=== PATIENT | female | born 1975 | race Caucasian/White ===

== ENCOUNTER 2024-04-08 13:07 | Emergency (ER) | payer OTHER ==
[2024-04-08 13:18] VITALS: BP 118/82; PULSE 72; RESP 18; TEMP 99.2; BMI 33.2
[2024-04-08 14:30] LABS: BASO % 0.9 % (0-2.0); EOS % 0.6 % (0-4.5); HEMATOCRIT 38.6 % (32.4-45.2); HEMOGLOBIN 12.8 GM/dL (10.7-15.3); LYMPH % 28.3 % (8-40); MCH 28.8 pg (25.7-33.7); MEAN CELL VOLUME 87.2 fl (80-96); MEAN PLT VOLUME 7.7 fl (7.5-11.1); MONO % 6.9 % (3.8-10.2); NEUT % 63.3 % (42.8-82.8); PLATELET COUNT 285 10^3/uL (134-434); RBC 4.43 M/mm3 (3.60-5.2); RDW 13.3 % (11.6-15.6)
[2024-04-08 14:31] LABS: URINE APPEARANCE CLEAR; URINE BILIRUBIN NEGATIVE (NEGATIVE); URINE COLOR YELLOW; URINE GLUCOSE (UA) NEGATIVE (NEGATIVE); URINE KETONE NEGATIVE (NEGATIVE); URINE LEUK ESTERASE NEGATIVE (NEGATIVE); URINE NITRITE NEGATIVE (NEGATIVE); URINE PROTEIN NEGATIVE (NEGATIVE); URINE UROBILINOGEN 0.2 mg/dL (0.2-1.0)
[2024-04-08 14:34] LABS: HCG,QUALITATIVE URINE Negative
[2024-04-08] MEDS ORDERED: KETOROLAC TROMETHAMINE 30 MG/1 ML VIAL ONE ×2 (14:55→15:54)
[2024-04-08] MEDS: SODIUM CHLORIDE 0.9% 500 ML INFUS.BAG IV ONE (14:58)
[2024-04-08] MEDS: KETOROLAC TROMETHAMINE 30 MG/1 ML VIAL IVPUSH ONE (14:59)
[2024-04-08 15:03] LABS: POTASSIUM 4.1 mmol/L (3.5-5.1)
[2024-04-08 15:05] LABS: CALCIUM 9.4 mg/dL (8.5-10.1)
[2024-04-08 15:06] LABS: ALBUMIN 3.8 g/dl (3.4-5.0); BLOOD UREA NITROGEN 20.2 mg/dL (7-18)
[2024-04-08 15:09] LABS: CREATININE 0.6 mg/dL (0.55-1.3)
[2024-04-08 15:11] LABS: BILIRUBIN,TOTAL 0.4 mg/dL (0.2-1); TOT PROT 7.8 g/dl (6.4-8.2)
== END 2024-04-08 22:19 | disposition home or self-care (01) ==
LOC: JER 13:07
PROC: 3E0333Z Introduction of Anti-inflammatory into Peripheral Vein, Percutaneous Approach (ICD-10-PCS; principal; 2024-04-08)
DX: R10.32 Left lower quadrant pain (principal); R53.83 Other fatigue; N83.202 Unspecified ovarian cyst, left side
CPT/HCPCS: 36415; 74177-TC; 76830-TC; 80053; 81003; 84703; 85025; 87086; 99285-25

== ENCOUNTER 2024-07-17 14:50 | Emergency (ER) | payer OTHER ==
[2024-07-17 15:05] VITALS: RESP 18; TEMP 98.8; BMI 28.9
[2024-07-17 15:56] LABS: BASO % 1.2 % (0-2.0); EOS % 1.1 % (0-4.5); HEMATOCRIT 38.6 % (32.4-45.2); HEMOGLOBIN 12.7 GM/dL (10.7-15.3); MCH 28.1 pg (25.7-33.7); MCHC 32.9 g/dl (32.0-36.0); MEAN CELL VOLUME 85.4 fl (80-96); MEAN PLT VOLUME 8.2 fl (7.5-11.1); MONO % 8.3 % (3.8-10.2); NEUT % 54.4 % (42.8-82.8); PLATELET COUNT 261 10^3/uL (134-434); RBC 4.51 M/mm3 (3.60-5.2); RDW 13.8 % (11.6-15.6); WHITE BLOOD COUNT 10.9 K/mm3 (4.0-10.0)
[2024-07-17] MEDS ORDERED: MAG HYDROX/AL HYDROX/SIMETH 30 ML UNIT-DOSE CUP ONE (16:06)
[2024-07-17] MEDS ORDERED: FAMOTIDINE 10 MG TABLET ONE (16:06)
[2024-07-17] MEDS ORDERED: ACETAMINOPHEN 500 MG TABLET (FP) ONE (16:09)
[2024-07-17] MEDS: FAMOTIDINE 10 MG TABLET PO ONE (16:13)
[2024-07-17] MEDS: MAG HYDROX/AL HYDROX/SIMETH 30 ML UNIT-DOSE CUP PO ONE (16:13)
[2024-07-17] MEDS: ACETAMINOPHEN 500 MG TABLET (FP) PO ONE (16:13)
[2024-07-17 16:28] LABS: CHLORIDE 103 mmol/L (98-107); SODIUM 135 mmol/L (136-145)
[2024-07-17 16:29] LABS: ALBUMIN 3.8 g/dl (3.4-5.0); CALCIUM 9.1 mg/dL (8.5-10.1)
[2024-07-17 16:30] LABS: CO2 28 mmol/L (21-32); GLUCOSE,RANDOM 83 mg/dL (74-106); MAGNESIUM 2.2 mg/dL (1.8-2.4)
[2024-07-17 16:31] LABS: ANION GAP 4 mmol/L (4-13); POTASSIUM 6.5 mmol/L (3.5-5.1)
[2024-07-17 16:33] LABS: SGOT/AST 85 U/L (15-37)
[2024-07-17 16:34] LABS: BILIRUBIN,TOTAL 0.3 mg/dL (0.2-1); SGPT/ALT 49 U/L (13-61); TOT PROT 8.1 g/dl (6.4-8.2)
[2024-07-17 16:36] LABS: ALK PHOS 70 U/L (45-117)
[2024-07-17 17:26] LABS: PH,URINE 5.5 (5.0-8.0); URINE APPEARANCE CLOUDY; URINE BILIRUBIN NEGATIVE (NEGATIVE); URINE COLOR YELLOW; URINE GLUCOSE (UA) NEGATIVE (NEGATIVE); URINE KETONE NEGATIVE (NEGATIVE); URINE LEUK ESTERASE NEGATIVE (NEGATIVE); URINE NITRITE NEGATIVE (NEGATIVE); URINE PROTEIN NEGATIVE (NEGATIVE); URINE UROBILINOGEN 0.2 mg/dL (0.2-1.0)
[2024-07-17 17:36] VITALS: BP 140/79; PULSE 68
[2024-07-17 17:43] LABS: POTASSIUM 4.2 mmol/L (3.5-5.1)
[2024-07-17 17:45] LABS: BLOOD UREA NITROGEN 15.4 mg/dL (7-18); CALCIUM 8.8 mg/dL (8.5-10.1)
[2024-07-17 17:49] LABS: CREATININE 0.8 mg/dL (0.55-1.3)
== END 2024-07-17 19:05 | disposition home or self-care (01) ==
LOC: JER 14:50
DX: R07.89 Other chest pain (principal)
CPT/HCPCS: 36415; 71045-TC-FY; 80048; 80053; 81003; 83735; 83880; 84484; 84703; 85025; 87086; 87186; 93005; 93010; 99285-25